=== PATIENT | female | born 1980 | race Caucasian/White ===

== ENCOUNTER → 2016-09-19 | Outpatient (CLI) | payer MEDICAID | LOC: COL.RAD 07:06 | DX: K80.20 Calculus of gallbladder without cholecystitis without obstruction (principal) ==

== ENCOUNTER 2017-03-08 14:44 | Emergency (ER) | payer MEDICAID ==
[~2017-03-08] VITALS: Ht 160 cm; Wt 59.1 kg
[2017-03-08 14:49] VITALS: BP 125/78; TEMP 98.7
[2017-03-08] MEDS ORDERED: WELLBUTRIN XL300 M1 PO (15:32)
[2017-03-08] MEDS ORDERED: BENADRYL25 M2 PO (15:33)
[2017-03-08] MEDS ORDERED: ADDERALL30 MG PO (15:34)
[2017-03-08] MEDS ORDERED: CEPHALEXIN500 M1 PO (17:56)
[2017-03-08] MEDS ORDERED: ZOFRAN 4MG T4 MG/TAB PO (17:56)
[2017-03-08 18:25] VITALS: PULSE 89
== END 2017-03-08 18:30 | disposition home or self-care (01) ==
LOC: COL.ER 14:44
DX: L02.01 Cutaneous abscess of face (principal)

== ENCOUNTER 2018-04-24 09:28 | Emergency (ER) | payer MEDICAID ==
[~2018-04-24] VITALS: Ht 162.6 cm; Wt 61.4 kg
[~2018-04-24 09:28] MED LIST: ADDERALL30 MG PO; BACTRIM DS 8001 TAB PO; BENADRYL25 M2 PO; CEPHALEXIN500 M1 PO; WELLBUTRIN XL300 M1 PO; ZOFRAN 4MG T4 MG/TAB PO
[2018-04-24 09:33] VITALS: BP 117/76; TEMP 98.8
[2018-04-24] MEDS ORDERED: ZOFRAN ODT4 MG PO (09:39)
[2018-04-24] MEDS ORDERED: DOXYCYCLINE HY100 MG PO (10:27)
[2018-04-24] MEDS ORDERED: ULTRAM 50MG TAB50 MG PO (10:28)
[2018-04-24 10:30] VITALS: PULSE 90
== END 2018-04-24 10:30 | disposition home or self-care (01) ==
LOC: COL.ER 09:28
DX: L02.412 Cutaneous abscess of left axilla (principal); F32.9 Major depressive disorder, single episode, unspecified; F41.9 Anxiety disorder, unspecified; Z90.49 Acquired absence of other specified parts of digestive tract

== ENCOUNTER 2021-02-15 11:33 | Outpatient (CLI) | payer MEDICAID ==
[~2021-02-15] VITALS: Ht 162.6 cm; Wt 108.1 kg
[2021-02-15] VITALS (7 sets, daily range): BP systolic 123–136; BP diastolic 55–83; PULSE 80–96; TEMP 97.9
[~2021-02-15 11:33] MED LIST changes: +DOXYCYCLINE HY100 MG PO; +ULTRAM 50MG TAB50 MG PO; +ZOFRAN ODT4 MG PO
[2021-02-15] MEDS ORDERED: CELEXA 20MG20 MG/TAB PO (11:49)
[2021-02-15] MEDS ORDERED: AMOXICILLIN 8751 TAB (11:51)
--- NOTE | 2021-02-15 13:11 | NUR ---
Pt arrived to [facility],report from Radha Mahajan.
[2021-02-15 13:25] LABS: GLUCOSE,CSF 60 mg/dL (40-70)
[2021-02-15 14:06] LABS: CSF APPEARANCE CLEAR; CSF COLOR COLORLESS; CSF RBC 63 /mm3 (0-0)
--- NOTE | 2021-02-15 14:15 | NUR ---
discharge instructions given to pt.pt verbalizes understanding.Pt escorted out by this nurse.
[2021-02-15 14:41] LABS: CSF MONONUCLEAR 100 % (70-100); CSF POLYMORPHONUCLEAR 0 % (0-6)
== END 2021-02-15 14:30 ==
LOC: COL.RAD 11:33
PROVIDERS: Physician Assistant
DX: R51.9 Headache, unspecified (principal)